=== PATIENT | male | born 1985 | race Caucasian/White ===

== ENCOUNTER 2023-05-13 19:05 | Emergency (ER) | payer BC, SELFPAY ==
[2023-05-13 19:20] VITALS: BP 154/88
--- NOTE | 2023-05-13 21:38 | ED.GENMED ---
History of Present Illness
General
Chief Complaint: Cold/Flu/URI Symptoms
Source: patient
Exam Limitations: none
Time Seen by Provider: 05/13/23 21:15
Nursing documentation reviewed up to this point in time: agreed with
Travel History
Have you had any contact with someone who has COVID-19?: No
Do you have any symptoms of coronavirus? Fever > 100 degrees, chills, cough, shortness of breath, sore throat, loss of taste or smell, muscle aches, or headache?: No
History of Present Illness
History of Present Illness:
Patient presents ED secondary to 4-day history of chills, body ache, intermittent cough, headache, and vomiting. Denies fever. Patient was evaluated at urgent care center yesterday and was told that he 'may have flu', and was started on Tamiflu.
Since then, he has been taking Advil at home, including last dose at 3 PM, without improvement in symptoms. Denies dizziness. Denies blurred vision. Denies loss of sensation or weakness. Denies difficulty with ambulation. Denies difficult with
speech. Denies neck pain.
Past History
Past History
ED Past Medical History: None
ED Past Surgical History: None
Social History
Tobacco: Smoker
Alcohol: Occasional
Personal: Single
Living: with family
Employment: Employed
Review of Systems
Review of Systems
Allergies reviewed?: Yes
All Other Systems: ROS reviewed and negative except as documented in HPI and ROS
Constitutional: Reports fever and chills
EENT: Reports no symptoms
Respiratory: Reports cough
Cardiac: Reports no symptoms
ABD/GI: Reports vomiting; Denies abdominal pain
: Reports no symptoms
Musculoskeletal: Reports muscle pain
Skin: Reports no symptoms
Neurological: Reports headache
Phy Exam
Physical Exam
Physical Exam:
Physical Exam
General: mild distress, not acutely ill. afebrile.
Head: nc/at. eomi
Neck: supple. no meningeal signs.
Heart: s1/s2 regular rate and rhythm, no murmur. equal radial pulses.
Lungs: no acute respiratory distress. clear bilaterally
Abdomen: normal bowel sounds. not tender.
Neuro: alert and oriented. no focal neurological deficits
Skin: no rash
Psychiatric: well kept. interactive and cooperative
Extremities: no edema. no calf tenderness.
Course
Orders/Labs/Results
Orders:
Orders
05/13/23 21:19
0.9% Sodium Chloride 1000 ml [Nss] 1,000 ml IV BOLUS
Acetaminophen [Tylenol] 1,000 mg PO NOW STA
Ketorolac [Toradol] 30 mg IV NOW STA
Ondansetron Injectable [Zofran] 4 mg IV NOW STA
05/13/23 21:38
Basic Metabolic Panel Urgent
COVID-19 Antigen Urgent
Source: Nasal Swab
Complete Blood Count/With Diff Urgent
Monotest Urgent
Comment: ADD ON
Influenza A+B Rapid Molecular Urgent
KAREEM Source: Nasal Swab
Specimen Description:
05/13/23 22:54
Add On- LAB Urgent
Tests Added?: monotest
05/13/23 22:56
Ondansetron Orally Disint [Zofran Odt (Orally Disintegrating)] 4 mg PO NOW STA
Abnormal Lab Results
05/13/23
21:38
Absolute Lymphs (auto) 0.6 L 10^3/uL
(1.2-3.4)
Neutrophils % 85.8 H %
(42.2-75.2)
Lymphocytes % 9.2 L %
(20.5-51.1)
Sodium 134 L mmol/L
(135-145)
Glucose 119 H mg/dl
(70-99)
02/20/24 21:38
05/13/23 21:38
Vital Signs
Initial and Last Documented VS:
Initial Vital Signs
Temp Pulse Resp BP Pulse Ox
98.1 F 80 18 154/88 96
05/13/23 19:20 05/13/23 19:20 05/13/23 19:20 05/13/23 19:20 05/13/23 19:20
Last Documented Vital Signs
Temp Pulse Resp BP Pulse Ox
98.1 F 71 18 115/82 98
05/13/23 19:20 05/13/23 23:14 05/13/23 23:14 05/13/23 23:14 05/13/23 23:14
MDM/Problems Addressed
MDM/Problems Addressed:
Pt reports mild improvement in symptoms after treatment, along with an unremarkable workup. Upon re-examination, patient appears more comfortable. Pt does not have any physical exam findings concerning for bacterial meningitis, i.e. supple neck
along with normal mentation. History and exam consistent with likely viral illness, although COVID and influenza negative. Patient will be discharged home in stable condition, to the care of his family, with recommendation to take Tylenol/Motrin
for symptomatic relief along with continued hydration. Advised to return to ED with worsening symptoms.
*Critical Care Note
Total Time (30-74mins, 75-104mins- exclusive of procedures): Not Applicable
ED Attending Note
-
Portions of this chart may have been created with voice recognition software.� Occasional wrong word or��sound alike� substitutions may have occurred due to the inherent limitations of voice recognition software.
Discharge Plan
Departure
Patient Disposition: Home (Routine Discharge)
Date of Disposition: 05/13/23
Time of Disposition: 22:55
Patient with high blood pressure during this ER visit?: Yes
Condition: Good
Covid-19: Negative COVID-19
Discharge Problem:
Acute viral syndrome
Instructions: Viral Syndrome (DC)
Prescriptions:
New
ondansetron 4 mg Tablet,Disintegrating
4 mg PO TIDPRN PRN (Reason: nausea/vomiting) Qty: 12 0RF
No Action
prednisone 10 MG tablet
10 mg PO .TAPER Qty: 30 0RF
Rx Instructions:
Take 50mg daily for 2 days, 40mg daily for 2 days, 30mg daily for 2 days, 20mg daily for 2 days, 10mg daily for 2 days
Referrals:
NONE,* [Family Provider] -
Activity Restrictions/Additional Instructions:
As discussed, please follow-up with your primary care physician for reevaluation, or return to ED with worsening symptoms. Your prescription has been sent electronically to [facility] pharmacy in [place].
Interventions
Interventions:
*Risk Screen - Suicide Last Done: 05/13/23 19:20
*General Assessment Last Done: 05/13/23 21:46
*Neglect/Abuse Screening Last Done: 05/13/23 19:20
ED- Fall Risk Assessment Last Done: 05/13/23 21:17
*Nursing Disposition Last Done: 05/13/23 23:15
ED- Pulmonary Assessment Last Done: 05/13/23 21:17
Discharge Date and Time
Discharge Date/Time: 05/13/23 23:15
[2023-05-13] MEDS: TYLENOL 1000 MG PO (21:43)
[2023-05-13] MEDS: TORADOL 30 MG IV (21:44)
[2023-05-13] MEDS: ZOFRAN 4 MG IV (21:44)
[2023-05-13] MEDS: NSS 1000 IV (21:44)
[2023-05-13 21:51] LABS: % Basophils 0.2 % (0-2); % Eosinophils 0.2 % (0-6); % Immature Granulocytes 0.5 % (0-0.5); % Lymphocytes 9.2 % (20.5-51.1); % Monocytes 4.1 % (1.7-9.3); % Neutrophils 85.8 % (42.2-75.2); Absolute Lymphocytes 0.6 10^3/uL (1.2-3.4); Absolute Monocytes 0.3 10^3/uL (0.1-0.6); Absolute Neutrophils 5.4 10^3/uL (1.4-6.5); Hematocrit 40.3 % (39.0-52.0); Hemoglobin 14.4 g/dL (13.0-18.0); Mean Corp Hgb Conc. 35.7 g/dL (33.0-37.0); Mean Corpuscular Hgb 29.3 pg (27.0-31.0); Mean Corpuscular Volume 81.9 fL (80.0-94.0); Mean Platelet Volume 8.8 fL (7.4-10.4); Nucleated Red Blood Cells % 0 % (-); Platelet Count 193 10^3/uL (130-400); Red Blood Cell Count 4.92 10^6/uL (4.70-6.10); Red Cell Dist. Width 12.1 % (11.5-14.5); White Blood Cell Count 6.3 10^3/uL (4.8-10.8)
[2023-05-13 22:04] LABS: COVID-19 Antigen Negative (Negative)
[2023-05-13 22:07] LABS: Blood Urea Nitrogen 17 mg/dl (9-20); Calcium 9.7 mg/dl (8.4-10.2); Carbon Dioxide 26 mmol/L (22-30); Chloride 99 mmol/L (98-107); Glucose 119 mg/dl (70-99); Potassium 3.8 mmol/L (3.5-5.1); Sodium 134 mmol/L (135-145); eGFR > 60.00
[2023-05-13 23:06] LABS: Monotest Negative (Negative)
[2023-05-13] MEDS: ZOFRAN ODT (ORALLY DISINTEGRATING) 4 MG PO (23:12)
[2023-05-13 23:14] VITALS: BP 115/82
== END 2023-05-13 23:15 | disposition home or self-care (01) ==
LOC: EMR 19:05
PROVIDERS: EMERGENCY PHYSICIAN Emergency Medicine
DX: B34.9 Viral infection, unspecified (principal); R51.9 Headache, unspecified; R11.10 Vomiting, unspecified; M79.10 Myalgia, unspecified site; Z11.52 Encounter for screening for COVID-19; R03.0 Elevated blood-pressure reading, without diagnosis of hypertension; F17.200 Nicotine dependence, unspecified, uncomplicated; Z88.1 Allergy status to other antibiotic agents
CPT/HCPCS: 99284; 96374; 96375; 96361; 80048; 85025; 86308; 87502; 87811